=== PATIENT | female | born 1935 | race Hispanic/Latino ===

== ENCOUNTER 2021-09-23 23:02 | Observation (INO) | payer MEDICARE, OTHER ==
[2021-09-24 00:05] LABS: Digoxin 0.75 ng/mL (0.8-2.0)
[2021-09-24 00:50] LABS: Bilirubin Neg (Negative); Blood, Urine 10 (Negative); Clarity Clear (Clear); Glucose, Urine (Dipstick) >=1000 mg/dL (Negative); Ketone, Urine Negative (Negative); Leukocyte Negative (Negative); Nitrite Negative (Negative); Protein, Urine (Dipstick) 100 mg/dl (Neg-Trace); Specific Gravity, Urine 1.005 (1.002-1.036); Urobilinogen Normal mg/dL (Less than 2)
[2021-09-24 00:57] LABS: Bacteria/HPF None Seen HPF (None Seen); WBC/HPF 0-3 HPF (0-3)
[2021-09-24] MEDS ORDERED: Acetaminophen 500 MG TAB ONE (01:13)
[2021-09-24 02:27] VITALS: BMI 26.9
[2021-09-24] MEDS ORDERED: hydrALAZINE 25 MG TAB PO SCH ×3 (02:30→15:45)
[2021-09-24] MEDS: Lactated Ringer's 1,000 ML IV SCH ×2 (03:30→15:01)
[2021-09-24 04:08] LABS: #Basophils 0.1 10x3/uL (0.0-0.2); #Eosinphils 0.1 10x3/uL (0.0-0.5); #Monocytes 0.5 10x3/uL (0.0-1.1); #Neutrophils 4.8 10x3/uL (1.5-8.4); %Basophils 0.7 % (0.0-2.0); %Eosinophils 1.7 % (0.0-6.0); %Monocytes 6.9 % (0.0-10.0); %Neutrophils 66.4 % (40.0-75.0); Anion Gap 17 mmol/L (10-20); BUN (Urea Nitrogen) 62 mg/dL (9.8-20.1); Calc. Creatinine Clearance 20 mL/min (70-130); Calcium 9.4 mg/dL (7.8-10.44); Carbon Dioxide 21 mmol/L (23-31); Chloride 102 mmol/L (98-107); Glucose 239 mg/dL (83-110); Hemoglobin 12.6 g/dL (12.0-15.5); Magnesium 1.9 mg/dL (1.6-2.6); Mean Corpuscular HGB CONC 35.1 g/dL (32.0-36.0); Mean Corpuscular Hemoglobin 32.6 pg (27.0-33.0); Mean Platelet Volume 10.1 fl (7.4-10.4); Platelet Count 224 10x3/uL (150-450); Potassium 4.3 mmol/L (3.5-5.1); RBC Distribution Width 13.2 % (11.5-14.5); Red Blood Cell (RBC) Count 3.86 10x6/uL (3.90-5.03); Sodium 136 mmol/L (136-145); White Blood Cell (WBC) Count 7.2 10x3/uL (3.5-10.5)
[2021-09-24 07:42] LABS: Creatinine, Urine 24.19 mg/dL (47-110)
[2021-09-24] MEDS ORDERED: hydrALAZINE 20 MG/ML VIAL SLOW IVP PRN (07:50)
[2021-09-24] MEDS: Ubidecarenone 50 MG CAP PO SCH (09:16)
[2021-09-24] MEDS: Carvedilol 12.5 MG TAB PO SCH ×2 (09:17→17:10)
[2021-09-24] MEDS: Icosapent Ethyl 1 GM CAPSULE PO SCH ×2 (09:17→17:10)
[2021-09-24] MEDS: Cyanocobalamin (Vitamin B-12) 1,000 MCG TAB PO SCH (09:17)
[2021-09-24] MEDS: Ferrous Gluconate 324 MG TAB PO SCH (09:17)
[2021-09-24] MEDS: hydrALAZINE 25 MG TAB PO SCH ×3 (09:17→20:51)
[2021-09-24] MEDS: Loratadine 10 MG TAB PO SCH (09:17)
[2021-09-24] MEDS: Aspirin 81 mg Enteric Coated Tablet PO SCH (09:17)
[2021-09-24] MEDS: Isosorbide Dinitrate 10 MG TAB PO SCH ×3 (09:17→20:50)
[2021-09-24] MEDS: Cholecalciferol 1,000 UNITS (25 MCG) TAB PO SCH (09:18)
[2021-09-24] MEDS: Empagliflozin 10 MG TAB PO SCH (09:18)
[2021-09-24] MEDS: Enoxaparin Sodium 30 MG/0.3 ML SYRINGE SC SCH (09:18)
[2021-09-24] MEDS ORDERED: Dextrose 50% Abboject 50 ML SYRINGE SLOW IVP PRN (09:28)
[2021-09-24] MEDS ORDERED: Dextrose 5% in Water 1,000 ML IV PRN (09:28)
[2021-09-24] MEDS ORDERED: HumaLOG 300 UNITS/3 ML VIAL SC PRN (09:28)
[2021-09-24] MEDS: HumaLOG 300 UNITS/3 ML VIAL SC PRN (12:23)
[2021-09-24] MEDS ORDERED: Lactated Ringer's 1,000 ML IV SCH (16:15)
[2021-09-24 17:31] LABS: ALT (SGPT) 34 U/L (8-55); AST (SGOT) 40 U/L (5-34); Albumin 4.2 g/dL (3.4-4.8); Alkaline Phosphatase 58 U/L (40-110); Bilirubin, Direct Less than 0.1 mg/dL (0.1-0.3); Bilirubin, Total 0.2 mg/dL (0.2-1.2); Protein, Total 8.2 g/dL (5.8-8.1)
[2021-09-24] MEDS ORDERED: Loratadine 10 MG TAB PO SCH (22:45)
[2021-09-24 23:12] LABS: Hemoglobin A1c 8.7 % (4.0-6.0)
[2021-09-25 03:50] LABS: Actual Bicarbonate (HCO3v) 23 mEq/L (22-28); Base Excess -2.3 mEq/L (-2.0 to +3.0); Chloride (VBG) 108 mmol/L (98-106); Critical Notified By: CP.PH; Hemoglobin (Hb) 10.7 g/dL (11.7-16.1); Potassium (VBG) 4.39 mmol/L (3.70-5.30); Puncture Site Other Site; RapidComm Collect By CSUC.CNC; Sodium 137.2 mmol/L (133-146); pH (venous) 7.39 (7.32-7.43)
[2021-09-25 04:06] LABS: #Eosinphils 0.1 10x3/uL (0.0-0.5); #Monocytes 0.4 10x3/uL (0.0-1.1); #Neutrophils 2.8 10x3/uL (1.5-8.4); %Basophils 0.8 % (0.0-2.0); %Eosinophils 2.5 % (0.0-6.0); %Lymphocytes 35.9 % (18.0-47.0); %Neutrophils 52.6 % (40.0-75.0); Hemoglobin 10.3 g/dL (12.0-15.5); Mean Corpuscular HGB CONC 34.4 g/dL (32.0-36.0); Mean Corpuscular Volume 92.9 fl (81.6-98.3); Mean Platelet Volume 10.1 fl (7.4-10.4); Platelet Count 171 10x3/uL (150-450); RBC Distribution Width 13.2 % (11.5-14.5); Red Blood Cell (RBC) Count 3.22 10x6/uL (3.90-5.03); White Blood Cell (WBC) Count 5.2 10x3/uL (3.5-10.5)
[2021-09-25 04:18] LABS: ALT (SGPT) 49 U/L (8-55); AST (SGOT) 41 U/L (5-34); Albumin 3.3 g/dL (3.4-4.8); Alkaline Phosphatase 42 U/L (40-110); Anion Gap 15 mmol/L (10-20); BUN (Urea Nitrogen) 50 mg/dL (9.8-20.1); Bilirubin, Direct 0.1 mg/dL (0.1-0.3); Bilirubin, Total 0.3 mg/dL (0.2-1.2); Calc. Creatinine Clearance 25 mL/min (70-130); Calcium 8.5 mg/dL (7.8-10.44); Carbon Dioxide 22 mmol/L (23-31); Cardiac Risk 5.8 (Less than 4.5); Chloride 109 mmol/L (98-107); Cholesterol 145 mg/dl (< 200 Desired); Glucose 102 mg/dL (83-110); HDL Cholesterol 25 mg/dL (>60 Neg Risk); LDL Cholesterol, Calculated 45 mg/dL; Magnesium 1.9 mg/dL (1.6-2.6); Potassium 4.5 mmol/L (3.5-5.1); Protein, Total 6.1 g/dL (5.8-8.1); Sodium 141 mmol/L (136-145); Triglycerides 375 mg/dL (Less than 150)
[2021-09-25] MEDS ORDERED: Levothyroxine Sodium 88 MCG TAB PO SCH (06:00)
[2021-09-25] MEDS: Loratadine 10 MG TAB PO SCH (08:46)
[2021-09-25] MEDS: Ubidecarenone 50 MG CAP PO SCH (08:46)
[2021-09-25] MEDS: hydrALAZINE 25 MG TAB PO SCH ×2 (08:46→13:18)
[2021-09-25] MEDS: Cholecalciferol 1,000 UNITS (25 MCG) TAB PO SCH (08:46)
[2021-09-25] MEDS: Ferrous Gluconate 324 MG TAB PO SCH (08:46)
[2021-09-25] MEDS: Icosapent Ethyl 1 GM CAPSULE PO SCH (08:46)
[2021-09-25] MEDS: Cyanocobalamin (Vitamin B-12) 1,000 MCG TAB PO SCH (08:47)
[2021-09-25] MEDS: Enoxaparin Sodium 30 MG/0.3 ML SYRINGE SC SCH (08:47)
[2021-09-25] MEDS: Empagliflozin 10 MG TAB PO SCH (08:47)
[2021-09-25] MEDS: Aspirin 81 mg Enteric Coated Tablet PO SCH (08:47)
[2021-09-25] MEDS: Isosorbide Dinitrate 10 MG TAB PO SCH ×2 (08:47→13:18)
[2021-09-25] MEDS: Carvedilol 12.5 MG TAB PO SCH (08:47)
[2021-09-25] MEDS ORDERED: Digoxin 0.125 MG TAB PO SCH (09:00)
[2021-09-25] MEDS: HumaLOG 300 UNITS/3 ML VIAL SC PRN (13:09)
[2021-09-25 13:19] VITALS: BP 184/84
[2021-09-25 13:51] VITALS: TEMP 96.9
[2021-09-25] MEDS ORDERED: Atorvastatin Calcium 40 MG TAB PO SCH (21:00)
== END 2021-09-25 13:51 | disposition home or self-care (01) ==
LOC: CSHERS 23:02 → CSHTELE 09-24 02:12
PROVIDERS: ADMIT Hospitalist; ATTEND Hospitalist
DX: I13.0 Hypertensive heart and chronic kidney disease with heart failure and stage 1 through stage 4 chronic kidney disease, or unspecified chronic kidney disease (principal); E11.22 Type 2 diabetes mellitus with diabetic chronic kidney disease; N18.4 Chronic kidney disease, stage 4 (severe); I50.22 Chronic systolic (congestive) heart failure; N17.9 Acute kidney failure, unspecified; I16.0 Hypertensive urgency; I42.8 Other cardiomyopathies; I25.10 Atherosclerotic heart disease of native coronary artery without angina pectoris; I08.3 Combined rheumatic disorders of mitral, aortic and tricuspid valves; K74.60 Unspecified cirrhosis of liver; E03.9 Hypothyroidism, unspecified; M19.90 Unspecified osteoarthritis, unspecified site; Z79.82 Long term (current) use of aspirin; Z79.83 Long term (current) use of bisphosphonates; Z79.84 Long term (current) use of oral hypoglycemic drugs; Z79.890 Hormone replacement therapy; Z79.899 Other long term (current) drug therapy; Z95.810 Presence of automatic (implantable) cardiac defibrillator; Z20.822 Contact with and (suspected) exposure to COVID-19
CPT/HCPCS: 70450; 71045; 76770; 80048 ×2; 80061; 80076 ×2; 80162; 82570; 82805; 82962 ×2; 83036; 83735 ×2; 83880 ×2; 84156; 84300; 84443; 84484; 84540; 85025 ×2; 93005; 93306; 97139 ×2; 99285; U0003; U0005; 36415; 36416; 81003; 81015; 96372; G0378; J1650; J1815; J7120